=== PATIENT | female | born 1945 | race Caucasian/White ===

== ENCOUNTER → 2018-09-30 15:49 | Outpatient (CLI) | payer MEDICARE, SELFPAY ==
--- NOTE | 2018-09-30 | DI.MRI.S_ITS ---
PROCEDURE: MR KNEE RT WO CON INDICATIONS: PAIN IN RIGHT KNEE TECHNIQUE: Noncontrast sagittal PD fast spin echo and T2 fast spin echo with fat saturation, sagittal 3-D FLASH with fat saturation; coronal T1 spin echo and PD fast spin echo with fat saturation, and axial PD fast spin echo with fat saturation through the knee. COMPARISON: None. FINDINGS: Image quality: Excellent. Menisci: Lateral meniscus appears intact. Circumferential tear of the medial meniscus involving the anterior horn, body and posterior horn. There is near complete extrusion of the body and macerated appearance. Cruciate ligaments: The anterior and posterior cruciate ligaments appear intact. Medial structures: The medial collateral ligament appears intact. There is semimembranosus insertional tendinopathy. The pes anserinus tendons appear grossly intact. Lateral structures: The lateral collateral ligament, long and short heads of the biceps femoris tendon appear intact. The popliteus tendon appears normal; the popliteofibular ligament appears intact. The posterosuperior and anteroinferior popliteomeniscal fascicles appear intact. The arcuate and fabellofibular ligaments appear intact, on either side of the lateral inferior geniculate artery. Iliotibial band appears normal. Anterior structures: Prepatellar and superficial infrapatellar subcutaneous edema/fluid. The quadriceps and patellar tendons appear intact although there is low grade proximal patellar tendinopathy, probably chronic. Patellar alignment is normal. No femoral trochlear dysplasia or ventral trochlear prominence. No edema in the infrapatellar fat pad. Bones and cartilage: No focal marrow contusion or discrete low signal fracture line. Within the medial compartment, near full-thickness loss of the femoral and tibial articular cartilage with subchondral sclerosis and marrow edema. Within the lateral compartment, no focal articular cartilage defect. Mild intrasubstance signal change involving the central tibial cartilage. Within the patellofemoral compartment, diffuse partial thickness loss of the femoral trochlear and patellar cartilage Joint space: Large joint effusion. There is a Tabares's cyst measuring 5 cm in a cephalocaudad dimension. No intra-articular loose body identified. IMPRESSION: Circumferential macerated medial meniscal tear with near complete extrusion. Severe degenerative joint disease, most pronounced within the medial compartment. Semimembranosus insertional tendinopathy. Large joint effusion. Tabares's cyst. Mild proximal patellar tendinopathy. Dictated by: Luis Angel Gasca M.D. on 09/30/2018 at 17:26 Approved by: Luis Angel Gasca M.D. on 09/30/2018 at 17:31
== END ==
PROVIDERS: PCP Family Medicine; Visit Provider Orthopaedic Surgery
DX: M25.561 Pain in right knee (principal); S83.241A Other tear of medial meniscus, current injury, right knee, initial encounter; M17.11 Unilateral primary osteoarthritis, right knee; M25.461 Effusion, right knee; M71.21 Synovial cyst of popliteal space [Baker], right knee
CPT/HCPCS: 73721